=== PATIENT | male | born 1985 | race Caucasian/White ===

== ENCOUNTER 2020-05-20 17:19 | Emergency (ER) | payer BC, OTHER ==
[~2020-05-20] VITALS: Ht 180 cm; Wt 104.0 kg
[2020-05-20] MEDS ORDERED: KETOROLAC 30 MG/ML VIAL IVP STA (17:34)
--- NOTE | 2020-05-20 17:50 | ED Respiratory ---
General Chief Complaint: Respiratory Problems Stated Complaint: COVID-19 POSITIVE,SOA,DIZZY Nursing Triage Note: Patient reports he began having symptoms of cough, sore throat, and shortness of breath on Tuesday, states he tested positive for COVID-19 yesterday. He reports he also tested positive for strep throat yesterday and is taking antibiotics. He states he went to walk-in care today and was referred to the ED for increased shortness of breath. History of Present Illness Date Seen by Provider: May 20, 2020 Time Seen by Provider: 17:35 Initial Comments 35-year-old male who presents with cough, sore throat or shortness of breath. Patient reports that symptoms started 3 days ago. That he was seen yesterday and was tested positive for strep and COVID. He was started on amoxicillin. He states that he went to walk and care today and was referred to the ER because he feels like he is having some increased shortness of breath. At the walk-in clinic his oxygen saturation was 98-99%. He complains of chest wall pain on the right side with deep breath. He has a subjective fever and chills. Patient reports that he feels short of breath. Patient denies nausea, vomiting, diarrhea, abdominal pain or urinary symptoms. Allergies and Home Medications Allergies Coded Allergies: No Known Drug Allergies (Unverified , 05/20/20) Patient Home Medication List Home Medication List Reviewed: Yes Review of Systems Review of Systems Constitutional: chills, dizziness, fever EENTM: throat pain Respiratory: cough, short of breath Cardiovascular: chest pain (with cough) Gastrointestinal: No abdominal pain, No nausea, No vomiting Musculoskeletal: no symptoms reported Skin: no symptoms reported Psychiatric/Neurological: No Symptoms Reported Hematologic/Lymphatic: No Symptoms Reported Immunological/Allergic: no symptoms reported Past Rzdadgy-Xcyhtf-Mfdaye Hx Past Med/Social Hx: Reviewed Nursing Past Med/Soc Hx Patient Social History Recent Infectious Disease Expo: Yes Physical Exam Vital Signs - First Documented 05/20/20 17:31 Temp 36.8 Pulse 95 Resp 16 B/P (MAP) 120/82 (95) Pulse Ox 97 O2 Delivery Room Air Capillary Refill : Less Than 3 Seconds Height: '" Weight: lbs. oz. kg; 32.00 BMI Method: General Appearance: other (not feeling well, ill) Eyes: Bilateral Eye Normal Inspection Neck: full range of motion, supple, lymphadenopathy (R), lymphadenopathy (L) Respiratory: lungs clear, normal breath sounds, no respiratory distress, no accessory muscle use Cardiovascular: normal peripheral pulses, regular rate, rhythm Gastrointestinal: non tender, soft Extremities: normal range of motion Neurologic/Psychiatric: alert, normal mood/affect, oriented x 3 Skin: normal color, warm/dry Progress/Results/Core Measures Suspected Sepsis Recent Fever Within 48 Hours: No Infection Criteria Present: Documented Infection New/Unexplained Altered Menta: No Sepsis Screen: No Definite Risk SIRS Temperature: Pulse: 95 Respiratory Rate: 16 Laboratory Tests 05/20/20 17:45: White Blood Count 8.8 Blood Pressure 120 /82 Mean: 95 Laboratory Tests 05/20/20 17:45: Creatinine 0.93, Platelet Count 251, Total Bilirubin 0.2 Results/Orders Lab Results Laboratory Tests Test 05/20/20 17:45 Range/Units White Blood Count 8.8 4.3-11.0 10^3/uL Red Blood Count 5.36 4.35-5.85 10^6/uL Hemoglobin 16.3 13.3-17.7 G/DL Hematocrit 46 40-54 % Mean Corpuscular Volume 87 80-99 FL Mean Corpuscular Hemoglobin 30 25-34 PG Mean Corpuscular Hemoglobin Concent 35 32-36 G/DL Red Cell Distribution Width 12.6 10.0-14.5 % Platelet Count 251 130-400 10^3/uL Mean Platelet Volume 9.9 7.4-10.4 FL Immature Granulocyte % (Auto) 1 % Neutrophils (%) (Auto) 58 42-75 % Lymphocytes (%) (Auto) 26 12-44 % Monocytes (%) (Auto) 10 0-12 % Eosinophils (%) (Auto) 5 0-10 % Basophils (%) (Auto) 0 0-10 % Neutrophils # (Auto) 5.1 1.8-7.8 X 10^3 Lymphocytes # (Auto) 2.3 1.0-4.0 X 10^3 Monocytes # (Auto) 0.9 0.0-1.0 X 10^3 Eosinophils # (Auto) 0.5 H 0.0-0.3 10^3/uL Basophils # (Auto) 0.0 0.0-0.1 10^3/uL Immature Granulocyte # (Auto) 0.0 0.0-0.1 10^3/uL Sodium Level 142 135-145 MMOL/L Potassium Level 4.3 3.6-5.0 MMOL/L Chloride Level 107 98-107 MMOL/L Carbon Dioxide Level 24 21-32 MMOL/L Anion Gap 11 5-14 MMOL/L Blood Urea Nitrogen 12 7-18 MG/DL Creatinine 0.93 0.60-1.30 MG/DL Estimat Glomerular Filtration Rate > 60 BUN/Creatinine Ratio 13 Glucose Level 103 70-105 MG/DL Calcium Level 10.3 H 8.5-10.1 MG/DL Corrected Calcium 10.0 8.5-10.1 MG/DL Total Bilirubin 0.2 0.1-1.0 MG/DL Aspartate Amino Transf (AST/SGOT) 21 5-34 U/L Alanine Aminotransferase (ALT/SGPT) 28 0-55 U/L Alkaline Phosphatase 136 40-136 U/L C-Reactive Protein 2.07 H <0.50 MG/DL Total Protein 7.6 6.4-8.2 GM/DL Albumin 4.4 3.2-4.5 GM/DL My Orders Orders - GOSS,JOSELIN L DO Chest 1 View Ap/Pa Only (05/20/20 17:34) Cbc With Automated Diff (05/20/20 17:34) Comprehensive Metabolic Panel (05/20/20 17:34) Crp Fs (05/20/20 17:34) Ketorolac Injection (Toradol Injection) (05/20/20 17:34) Dexamethasone Injection (Decadron Inje (05/20/20 17:45) Medications Given in ED Current Medications Medications Dose Ordered Sig/Denisse Route Start Time Stop Time Status Last Admin Dose Admin Dexamethasone Sodium Phosphate 10 mg ONCE ONCE IV 05/20/20 17:45 05/20/20 17:46 DC 05/20/20 17:44 10 MG Vital Signs/I&O 05/20/20 17:31 Temp 36.8 Pulse 95 Resp 16 B/P (MAP) 120/82 (95) Pulse Ox 97 O2 Delivery Room Air Capillary Refill : Less Than 3 Seconds Blood Pressure Mean: 95 Progress Note : Time: 18:28 Progress Note Patient with negative chest x-ray and labs. Patient's oxygen saturation remained in the upper 90s throughout his stay with no signs of respiratory distress. Patient was given some Toradol for his pleuritic chest pain along with some Decadron for his strep throat. Patient stable and be discharged home Diagnostic Imaging Diagonstic Imaging: Xray Plain Films/CT/US/NM/MRI: chest Comments [facility]. [place], [place] NAME: IVAN MAGDALENO [facility] REC#: [id number] PT STATUS: REG ER : 1985 PHYSICIAN: JOSELIN GOSS DO ADMIT DATE: 05/20/20/ER FS Draft Date of Exam:05/20/20 CHEST 1 VIEW AP/PA ONLY INDICATION: Shortness breath, chest wall pain. TECHNIQUE: Single view chest 5:43 PM. CORRELATION STUDY: None FINDINGS: The heart size, mediastinal configuration and pulmonary vascularity are within normal limits. The lungs are clear with no consolidating infiltrate. There is no significant effusion or pneumothorax. IMPRESSION: 1. Negative for acute abnormality of the chest. Dictated on workstation # [id number] Dict: 05/20/20 1759 Trans: 05/20/20 1800 DO [id number] Departure Impression Primary Impression: Strep throat Additional Impression: COVID-19 Disposition: 01 HOME, SELF-CARE Condition: Stable Departure-Patient Inst. Patient Instructions: Coronavirus Disease 2019 (COVID-19) Overview, Strep Throat (DC) Add. Discharge Instructions: Vitamin C 500 mg twice daily, zinc 100 mg daily, melatonin slow release, 6-12 mg at night, vitamin D 4000 units daily, 81 mg aspirin daily, Pepcid 40 mg twice daily. These medications should help with your COVID symptoms and progression. Please follow-up with her primary care provider as needed, return to the ER if shortness of breath continues to worsen and year pulse ox drops below 90% All discharge instructions reviewed with patient and/or family. Voiced und erstanding. Scripts Ivermectin (Ivermectin) 3 Mg Tablet 21 MG PO DAILY, #14 TAB Take 21 mg today then another 21 mg 2 days later Prov: JOSELIN GOSS DO 05/20/20 JOSELIN GOSS DO May 20, 2020 17:50
[2020-05-20 17:56] LABS: HEMATOCRIT 46 % (40-54); HEMOGLOBIN 16.3 G/DL (13.3-17.7); MEAN CORPUSCULAR HEMOGLOBIN 30 PG (25-34); MEAN CORPUSCULAR HGB CONC 35 G/DL (32-36); MEAN CORPUSCULAR VOLUME 87 FL (80-99); MEAN PLATELET VOLUME 9.9 FL (7.4-10.4); PLATELET COUNT 251 10^3/uL (130-400); WHITE BLOOD COUNT 8.8 10^3/uL (4.3-11.0)
[2020-05-20 17:57] LABS: BASOPHILS % (AUTO) 0 % (0-10); EOSINOPHILS # (AUTO) 0.5 10^3/uL (0.0-0.3); EOSINOPHILS % (AUTO) 5 % (0-10); LYMPHOCYTES # (AUTO) 2.3 X 10^3 (1.0-4.0); LYMPHOCYTES % (AUTO) 26 % (12-44); MONOCYTES # (AUTO) 0.9 X 10^3 (0.0-1.0); MONOCYTES % (AUTO) 10 % (0-12); NEUTROPHILS # (AUTO) 5.1 X 10^3 (1.8-7.8); NEUTROPHILS % (AUTO) 58 % (42-75)
--- NOTE | 2020-05-20 18:01 | Diagnostic Imaging Report ---
INDICATION: Shortness breath, chest wall pain. TECHNIQUE: Single view chest 5:43 PM. CORRELATION STUDY: None FINDINGS: The heart size, mediastinal configuration and pulmonary vascularity are within normal limits. The lungs are clear with no consolidating infiltrate. There is no significant effusion or pneumothorax. IMPRESSION: 1. Negative for acute abnormality of the chest. Dictated by: Dictated on workstation # [id number]
[2020-05-20 18:09] LABS: ALANINE AMINOTRANSFERASE 28 U/L (0-55); ALKALINE PHOSPHATASE 136 U/L (40-136); BILIRUBIN,TOTAL 0.2 MG/DL (0.1-1.0); BUN/CREATININE RATIO 13; CALCIUM 10.3 MG/DL (8.5-10.1); CARBON DIOXIDE 24 MMOL/L (21-32); CHLORIDE 107 MMOL/L (98-107); CREATININE SERUM 0.93 MG/DL (0.60-1.30); GFR ESTIMATED > 60; GLUCOSE 103 MG/DL (70-105); POTASSIUM 4.3 MMOL/L (3.6-5.0); SODIUM 142 MMOL/L (135-145); TOTAL PROTEIN 7.6 GM/DL (6.4-8.2)
[2020-05-20 18:10] LABS: ALBUMIN 4.4 GM/DL (3.2-4.5)
[2020-05-20] MEDS ORDERED: IVER3TAB2 PO (18:32)
[2020-05-20 18:58] VITALS: BP 118/72
== END 2020-05-20 19:00 | disposition home or self-care (01) ==
LOC: ER FS 17:22
DX: U07.1 COVID-19 (principal)
CPT/HCPCS: 36415; 71045; 80053; 85025; 86141

== ENCOUNTER 2021-02-27 18:38 | Emergency (ER) | payer SELFPAY ==
[~2021-02-27] VITALS: Ht 180.3 cm; Wt 116.0 kg
[~2021-02-27 18:38] MED LIST: IVER3TAB2 PO
[2021-02-27 18:40] VITALS: BP 133/74
[2021-02-27] MEDS ORDERED: ONDANSETRON 4 MG (ZOFRAN) ORAL DISSOLVE TAB PO STA (18:56)
[2021-02-27] MEDS ORDERED: morphine INJ 10 MG/ML 1ML (SYR OR VIAL) IM STA (18:56)
[2021-02-27] MEDS ORDERED: HYDR-3817 PO (19:04)
--- NOTE | 2021-02-27 19:04 | ED General ---
General Stated Complaint: NECK/SHOULDER/BACK PAIN Source of Information: Patient History of Present Illness Date Seen by Provider: Feb 27, 2021 Time Seen by Provider: 06:45 Initial Comments Patient is a 36-year-old male presents with right lower paravertebral back pain after moving heavy appliances yesterday. Pain is moderate to severe sharp worse with palpation movement and trunk rotation. Is nonradiating. He denies midline pain and extremity weakness. Took NSAIDs and Flexeril today limited relief. No other acute symptoms or complaints. Timing/Duration: 1/2 Hour Severity: Moderate Modifying Factors: improves with Other Associated Systoms: Other Allergies and Home Medications Allergies Coded Allergies: No Known Drug Allergies (Unverified , 05/20/20) Patient Home Medication List Home Medication List Reviewed: Yes Ivermectin (Ivermectin) 3 Mg Tablet, 21 MG PO DAILY Prescribed by: JOSELIN GOSS on 05/20/201831 Review of Systems Review of Systems Constitutional: see HPI EENTM: see HPI Respiratory: see HPI Cardiovascular: see HPI Gastrointestinal: see HPI Genitourinary: see HPI Skin: see HPI Psychiatric/Neurological: See HPI Hematologic/Lymphatic: See HPI Immunological/Allergic: see HPI All Other Systems Reviewed Negative Unless Noted: Yes Past Bilglyu-Ovwzfb-Xsvknr Hx Seasonal Allergies Seasonal Allergies: No Past Medical History Surgeries: No Respiratory: No Cardiac: No Neurological: No Genitourinary: No Gastrointestinal: No Musculoskeletal: No Endocrine: No HEENT: No Cancer: No Psychosocial: No Integumentary: No Physical Exam Vital Signs Capillary Refill : Height, Weight, BMI Height: '" Weight: lbs. oz. kg; 32.00 BMI Method: General Appearance: Moderate Distress (Secondary to pain) Eyes: Bilateral Eye Normal Inspection, Bilateral Eye PERRL, Bilateral Eye EOMI HEENT: PERRL/EOMI Neck: Full Range of Motion Respiratory: Chest Non Tender, Lungs Clear Back: Muscle Spasm (Right lumbar paravertebral pain/tenderness.); No Vertebral Tenderness Neurologic/Psychiatric: Alert, Oriented x3, Normal Mood/Affect Focused Exam Sepsis Stage: Ruled Out Progress/Results/Core Measures Suspected Sepsis SIRS Temperature: Pulse: Respiratory Rate: Blood Pressure / Mean: Results/Orders My Orders Orders - ALEM STEELE DO Morphine Injection (Morphine Injection (02/27/21 18:56) Ondansetron Oral Dissolve Tab (Zofran (02/27/21 18:56) Vital Signs/I&O Capillary Refill : Departure Communication (Admissions) Acute lumbar back sprain. No neurologic deficit. Pain addressed. Recommendations are for supportive care and PCP follow-up as needed. Impression Primary Impression: Sprain lumbar region Disposition: 01 HOME, SELF-CARE Condition: Stable Departure-Patient Inst. Referrals: NO,LOCAL PHYSICIAN (PCP/Family) Primary Care Physician Patient Instructions: Back Muscle Strain Add. Discharge Instructions: You were evaluated in the emergency department for low back pain. Please avoid strenuous physical activity heavy lifting and take ibuprofen and Flexeril for pain. Take hydrocodone as needed for additional relief. Follow-up with your PCP early next week if symptoms persist. Scripts Hydrocodone/Acetaminophen (Hydrocodone-Acetamin 7.5-325) 1 Each Tablet 1 EACH PO Q6H, #10 TAB Prov: ALEM STEELE DO 02/27/21 ALEM STEELE DO Feb 27, 2021 19:04
== END 2021-02-27 19:10 | disposition home or self-care (01) ==
LOC: EDUNIT# 18:38 → ER FS 18:39
DX: S33.5XXA Sprain of ligaments of lumbar spine, initial encounter (principal); X50.0XXA Overexertion from strenuous movement or load, initial encounter
CPT/HCPCS: 96372; 99284

== ENCOUNTER 2021-03-23 06:58 | Emergency (ER) | payer SELFPAY ==
[~2021-03-23] VITALS: Ht 180 cm; Wt 115.0 kg
[~2021-03-23 06:58] MED LIST changes: +HYDR-3817 PO
[2021-03-23] MEDS ORDERED: CYCLOBENZAPRINE 10 MG (FLEXERIL) TAB PO STA (07:18)
--- NOTE | 2021-03-23 07:25 | ED Back Pain ---
General Chief Complaint: Back Problems Stated Complaint: RT SIDE BACK PAIN Source of Information: Patient Exam Limitations: No Limitations History of Present Illness Date Seen by Provider: Mar 23, 2021 Time Seen by Provider: 07:05 Initial Comments 36yoM with no significant PMH coming in due to R lower back pain. Originally had this pain in February when he came to our ER. Pain got better with time. Started back on and has been constant aching in his lower back radiating down his right leg stopping at his knee. Denies any weakness, numbness, bowel or bladder issues, fever, IV drug use, history of cancer, trauma, burning with urination, hematuria, history of kidney stones, or any midline lower back pain. Has been trying intermittent ibuprofen and Tylenol with the last doses yesterday which took the edge off. Does not have insurance and has been unable to follow- up with orthopedics. Is otherwise denying any other acute complaints. Allergies and Home Medications Allergies Coded Allergies: No Known Drug Allergies (Unverified , 05/20/20) Patient Home Medication List Home Medication List Reviewed: Yes Hydrocodone/Acetaminophen (Hydrocodone-Acetamin 7.5-325) 1 Each Tablet, 1 EACH PO Q6H Prescribed by: ALEM STEELE on 02/27/211904 Ivermectin (Ivermectin) 3 Mg Tablet, 21 MG PO DAILY Prescribed by: JOSELIN GOSS on 05/20/201831 Review of Systems Constitutional: No chills, No fever EENTM: No blurred vision Respiratory: No cough Cardiovascular: No chest pain Gastrointestinal: No abdominal pain Genitourinary: no symptoms reported Musculoskeletal: back pain Skin: no symptoms reported Psychiatric/Neurological: No Symptoms Reported All Other Systems Reviewed Negative Unless Noted: Yes Past Hivfnya-Mwbrlp-Sewchb Hx Patient Social History Tobacco Use?: No Substance use?: No Alcohol Use?: No Seasonal Allergies Seasonal Allergies: No Past Medical History Surgeries: Yes Orthopedic (rotator cuff surgery on right shoulder) Respiratory: No Cardiac: No Neurological: No Genitourinary: No Gastrointestinal: No Musculoskeletal: No Endocrine: No HEENT: No Cancer: No Psychosocial: No Integumentary: No Physical Exam Vital Signs Capillary Refill : Height, Weight, BMI Height: '" Weight: lbs. oz. kg; 35.00 BMI Method: General Appearance: No Apparent Distress, WD/WN HEENT: PERRL/EOMI, Normal ENT Inspection, Pharynx Normal Neck: Full Range of Motion, Normal Inspection, Non Tender, Supple Cardiovascular: Regular Rate, Rhythm, No Edema, Normal Peripheral Pulses Respiratory: Chest Non Tender, Lungs Clear, Normal Breath Sounds, No Accessory Muscle Use, No Respiratory Distress Gastrointestinal: Normal Bowel Sounds, Non Tender, Soft; No Distended, No Guarding Back: Normal Inspection, No CVA Tenderness, No Vertebral Tenderness, Other (right sided paravertebral tenderness, positive straight leg raise and negative contralateral straight leg raise) Extremity: Normal Capillary Refill, Normal Inspection, Normal Range of Motion, Non Tender, No Calf Tenderness Neurologic/Psychiatric: Alert, Oriented x3, Normal Mood/Affect, Other (antalgic gait, normal dorsiflexion/plantarflexion/knee extension/flexion) Skin: Normal Color, Warm/Dry Lymphatic: No Adenopathy Progress/Results/Core Measures Results/Orders My Orders Orders - UV ALLISON MD Ketorolac Injection (Toradol Injection) (03/23/21 07:30) Dexamethasone Injection (Decadron Injec (03/23/21 07:30) Cyclobenzaprine Tablet (Flexeril Tablet) (03/23/21 07:18) Progress Progress Note : Progress Note 36-year-old male with above history coming in due to right lower back pain. Pain was slow in onset and constant since . Feels similar to when he tweaked his back over a month ago lifting something heavy. Now having more radicular symptoms down his right leg. Physical exam consistent with a musculoskeletal cause of his back pain. He has no red flags for his low back pain. Does not sound like a kidney stone based on history and exam. Given a shot of Toradol and Decadron given the radicular symptoms. We will give prescription for symptomatic treatment and recommended at home physical therapy and went over the exercises and stretches with him. He has insurance coming in 2 weeks, and I recommended at that time he follow-up with orthopedics if he is still having pain. He was then discharged home in stable condition with strict return precautions. Departure Impression Primary Impression: Lumbar radiculopathy Disposition: 01 HOME, SELF-CARE Condition: Stable Departure-Patient Inst. Decision time for Depature: 07:35 Referrals: SAHARA GREEN NO,LOCAL PHYSICIAN (PCP) Primary Care Physician Patient Instructions: Low Back Pain (DC) Add. Discharge Instructions: You are seen in the emergency department for lower back pain. Please take ibuprofen 600 mg every 6 hours with plenty of water for the next several days. You can take 1000 mg of Tylenol every 8 hours as well in between these doses. I also wrote a prescription for a lidocaine patch which you should put over the part that hurts. Sometimes this prescription is a little expensive, and you can buy essentially the same thing [id number], just asked the pharmacist where it is at. It will be much cheaper this way. Also wrote a prescription for a muscle relaxer. Continue to do stretches of your hamstrings as well as work on core work such as ab strengthening with planks. Please follow-up with an orthopedic doctor in the next couple weeks if you are continuing to have pain. If you have any true weakness we cannot move your leg, numbness or you cannot feel your leg, or difficulty going to the bathroom or you cannot feel yourself go to the bathroom, then please come back to the ER. Scripts Lidocaine (Lidocaine 5% Patch) 1 Each Adh..patch 1 EACH TP Q12H PRN for Neuropathic pain MDD 2 for 7 Days, #14 PATCH 2 patches max for 12 hours, then 12 hours patch-free period. Prov: VU ALLISON MD 03/23/21 Cyclobenzaprine HCl (Cyclobenzaprine HCl) 10 Mg Tablet 10 MG PO Q8H PRN for SPASMS for 5 Days, #15 TAB 0 Refills Prov: VU ALLISON MD 03/23/21 Work/School Note: Work Release Form Date Seen in the Emergency Department: Mar 23, 2021 Return to Work: Mar 25, 2021 Restrictions: No Restrictions VU ALLISON MD Mar 23, 2021 07:25
[2021-03-23] MEDS ORDERED: KETOROLAC 30 MG/ML VIAL IVP ONE (07:30)
[2021-03-23] MEDS ORDERED: CYCL10TA9 PO (07:30)
[2021-03-23] MEDS ORDERED: LIDO700A45 TP (07:30)
[2021-03-23 07:38] VITALS: BP 118/76
== END 2021-03-23 07:40 | disposition home or self-care (01) ==
LOC: EDUNIT# 06:58 → ER FS 07:01
DX: M54.16 Radiculopathy, lumbar region (principal)
CPT/HCPCS: 99284